=== PATIENT | male | born 1975 | race Caucasian/White ===

== ENCOUNTER → 2017-01-21 | Outpatient (CLI) | payer OTHER ==
[2017-01-23 12:26] LABS: ALPHA 1 ANTITRYPSIN TOTAL 97 mg/dL (())
[2017-01-24 09:27] LABS: ALTERNARIA TENUIS IgE <0.05 IU/mL (<0.05); ALTERNARIA TENUIS IgE CLASS Negative (()); BERMUDA GRASS IGE CLASS Negative (()); BOX ELDER-MAPLE IgE <0.05 IU/mL (<0.05); BOX ELDER/MAPLE IgE CLASS Negative (()); CAT EPITHELIUM IGE CLASS Negative (()); CLASS INTERPRETATION GUIDE IU/mL (()); COCKROACH CLASS Negative (()); COTTONWOOD IGE CLASS Negative (()); DOG DANDER IGE CLASS Negative (()); DUST MITES IGE (D.F.) 1.85 IU/mL (<0.05); DUST MITES IGE (D.P.) 1.44 IU/mL (<0.05); FIREBUSH CLASS Negative (()); OAK IGE <0.05 IU/mL (<0.05); RED TOP IGE CLASS Negative (()); RED TOP IgE <0.05 IU/mL (<0.05); ROUGH MARSH ELDER IGE CLASS Negative (()); RUSSIAN THISTLE CLASS Negative (()); SHORT RAGWEED IGE CLASS Negative (())
== END ==
LOC: COL.PUL 08:08 → COL.LAB 08:08 → COL.PUL 09:00
PROVIDERS: Internal Medicine Pulmonary Disease
DX: J30.9 Allergic rhinitis, unspecified (principal); R06.02 Shortness of breath; Z87.891 Personal history of nicotine dependence
CPT/HCPCS: J7674

== ENCOUNTER 2017-06-17 08:50 | Day surgery (SDC) | payer OTHER ==
[~2017-06-17] VITALS: Ht 172.8 cm; Wt 89.0 kg
[2017-06-17] VITALS (10 sets, daily range): BP systolic 108–129; BP diastolic 67–87; PULSE 71–97; TEMP 97.9–98.5
[2017-06-17 09:47] LABS: HEMATOCRIT 48.2 % (42.0-52.0); HEMOGLOBIN 16.6 g/dl (13.5-18.0); MEAN CELL VOLUME 88 fl (80.0-100.0); MEAN CORPUSCULAR HEMOGLOBIN 30 pg (27.0-31.0); MEAN CORPUSCULAR HGB CONC 34 g/dl (33.0-37.0); MEAN PLATELET VOLUME 8.9 fl (7.4-10.4); PLATELET COUNT 249 K/mm3 (130-400); RED BLOOD COUNT 5.48 M/mm3 (4.20-5.60); REDCELL DISTRIBUTION WIDTH-CV 13.3 % (11.5-14.5)
[2017-06-17 09:53] LABS: PROTHROMBIN TIME 12.1 SECONDS (9.7-12.8)
[2017-06-17 09:57] LABS: CALCIUM 9.6 mg/dL (8.4-10.2); CREATININE, serum 1.04 mg/dL (0.66-1.25); POTASSIUM 4.1 mmol/L (3.4-5.0)
[2017-06-17] MEDS ORDERED: PROVENTIL0.09 MG/A1 IH (10:14)
[2017-06-17] MEDS ORDERED: RT ADVAIR 528 DISKUS IH (10:16)
[2017-06-17] MEDS ORDERED: PRINIVIL5 MG PO (10:17)
[2017-06-17] MEDS ORDERED: WELLBUTRIN XL150 MG PO (10:17)
[2017-06-17] MEDS ORDERED: SINGULAIR 110 MG/TAB PO (10:18)
[2017-06-17] MEDS ORDERED: REMERON 15M15 MG/TA1 PO (10:18)
[2017-06-17] MEDS ORDERED: ZYRTEC 10MG10 MG PO (10:19)
[2017-06-17] MEDS ORDERED: ADVIL200 MG PO (10:19)
[2017-06-17] MEDS ORDERED: TYLENOL 325MG325 MG PO (10:20)
[2017-06-17] MEDS ORDERED: PAIN RELIEVING TOP (10:21)
== END 2017-06-17 15:19 | disposition home or self-care (01) ==
LOC: COL.CAR 08:50
PROVIDERS: Internal Medicine Cardiovascular Disease
DX: R94.39 Abnormal result of other cardiovascular function study (principal); I20.9 Angina pectoris, unspecified; I42.9 Cardiomyopathy, unspecified; Z68.30 Body mass index [BMI] 30.0-30.9, adult; Z87.891 Personal history of nicotine dependence
CPT/HCPCS: J1644; J2250; J3010; Q9967